=== PATIENT | female | born 1960 | race African-American/Black ===

== ENCOUNTER 2019-02-13 05:57 | Inpatient (IN) | payer OTHER ==
[2019-02-03 13:02] VITALS: BMI 30.1
[~2019-02-13 05:57] MED LIST: oxyCODONE HCL 10 MG SUSTAINED ACTING TABLET PO ONE
[2019-02-13] MEDS ORDERED: DEXAMETHASONE SOD PHOSPHATE/PF 10 MG/ML SDV ONE (07:08)
[2019-02-13] MEDS ORDERED: BUPIVACAINE LIPOSOME/PF (EXPAREL) 266 MG/20 ML VIAL ONE (07:08)
[2019-02-13] MEDS ORDERED: MIDAZOLAM HCL 2 MG/2 ML SINGLE DOSE VIAL ONE ×2 (07:09→08:35)
[2019-02-13] MEDS ORDERED: SODIUM CHLORIDE 0.9% P/F 10 ML VIAL IJ ONE (07:21)
[2019-02-13] MEDS ORDERED: ONDANSETRON 4 MG/2 ML VIAL ONE ×2 (07:21→07:26)
[2019-02-13] MEDS ORDERED: ceFAZolin SODIUM 1 GM VIAL ONE (07:21)
[2019-02-13] MEDS ORDERED: BUPIVACAINE HCL/PF 0.5% (5MG/ML) 10 ML VIAL ONE (07:26)
[2019-02-13] MEDS ORDERED: DEXMEDETOMIDINE HCL 200 MCG/2 ML IVPB ONE (07:54)
[2019-02-13] MEDS ORDERED: GUM MASTIC/STORAX/MSAL/ALCOHOL 1 DRP DROPSBTL MC ONE (08:06)
--- NOTE | 2019-02-13 08:26 | HP ---
History & Physical Update - History History: No Change - Physical Physical: No Change - Assessment Assessment: No Change - Plan Plan: No Change
[2019-02-13] MEDS ORDERED: ONDANSETRON 4 MG/2 ML VIAL IVPUSH PRN ×2 (10:14→11:08)
[2019-02-13] MEDS ORDERED: LACTATED RINGERS SOLUTION 1,000 ML IV SCH ×2 (10:15→11:15)
[2019-02-13] MEDS ORDERED: KETOROLAC TROMETHAMINE 15 MG/ML VIAL IVPUSH PRN (11:08)
[2019-02-13] MEDS ORDERED: ACETAMINOPHEN 1000 MG/100 ML VIAL (NON FORMULARY) IVPB PRN (11:08)
[2019-02-13] MEDS ORDERED: oxyCODONE HCL 5 MG TABLET PO PRN (11:08)
[2019-02-13] MEDS: ACETAMINOPHEN 1000 MG/100 ML VIAL (NON FORMULARY) IVPB ONE ×2 (11:09→11:15)
--- NOTE | 2019-02-13 11:17 | OP ---
Operative Note - Note: Operative Date: 02/13/19 Pre-Operative Diagnosis: L4-5 spondylolithiasis Operation: posterior lumbar decompression, fuson, instrumentation. transforaminal interbody lumbar fusion of L4-5 with allograft and neuromonitoring Surgeon: Mike Reynolds President + Publisher: Moira Peterson Anesthesiologist/AUTOMOTIVE TIRE TESTING SUPERVISOR: Sarahi Phoenix Anesthesia: Spinal Estimated Blood Loss (mls): 20 Fluid Volume Replaced (mls): 1,000 Operative Report Dictated: Yes
[2019-02-13] MEDS ORDERED: diazePAM 2 MG TABLET ONE (11:49)
[2019-02-13] MEDS: diazePAM 2 MG TABLET PO SCH (11:52)
--- NOTE | 2019-02-13 12:47 | OP ---
DATE OF OPERATION: 02/13/2019 PREOPERATIVE DIAGNOSIS: Spondylolisthesis at L4-5. POSTOPERATIVE DIAGNOSIS: Spondylolisthesis at L4-5. PROCEDURE PERFORMED: 1. L4-5 transforaminal lumbar interbody fusion. 2. Placement of instrumentation at L4-5. 3. Placement of prosthetic cage. SURGEON: Mike Reynolds MD [facility] RO[facility] ATTENDANT: ARANZA Amaya ESTIMATED BLOOD LOSS: 50 mL. INTRAVENOUS FLUIDS: Per Anesthesia. ANESTHESIA: Spinal/TLIP. COMPLICATIONS: None. DISPOSITION: Patient was brought to the PACU in stable condition. INDICATION FOR SURGERY: Patient is a 58-year-old female who has been suffering from pain from her back down her leg. X-rays and MRI were completed which noted that she had spondylolisthesis at L4-5, contributing to spinal stenosis at that level. She had gone through an exhaustive course of treatment for this, to include medications, physical therapy as well as injections. Unfortunately, her pain continued to persist despite all this. At this point, risks, benefits, and alternatives were discussed, and the patient consented to surgery. DESCRIPTION OF PROCEDURE: Patient was brought to the operating room by the anesthesia staff. After appropriate patient identification was performed, spinal anesthesia was given. TLIP block was also given. Patient was able to position herself prone onto the OR table with all areas of bony prominences well padded at this time. Two needles were placed in to ino off the L4-5 segment. X-ray was taken to confirm this as correct. Birch Tree were removed, and the L4 and L5 pedicles were marked off. Her back was prepped and draped in a sterile manner. At this point, timeout was completed. An incision was made from the top of L4 down to the bottom of L5. Dissection was carried down to the pedicles bilaterally. At this point, the C-arm was brought in. Under C-arm guidance, trocars were advanced into both the L4 and L5 pedicles. Through the trocar, a wire was inserted. Over the wire, tap was performed. Screws were inserted. On the right-hand side, retractor blades were set up to expose the L4-5 facet joint. The facet joint was removed. The disk was entered using a series of pituitaries, Kerrisons, and curettes. A diskectomy was completed. The endplates were decorticated at this time. A cage filled with bone graft was placed in. Manuelip heads were placed over the screws. A genaro was measured and placed in. Caps and compression were applied. On the left-hand side, a genaro was measured and placed in. Caps and compression were applied. AP and lateral x-rays confirmed the instrumentation to be in good position. The fascia was closed with a number 1 Vicryl suture. Subcutaneous tissues were closed with 2-0 Vicryl suture. The skin was closed with 4-0 Monocryl suture. Dermabond was applied. Steri-Strips were applied. A sterile dressing was applied. Patient was placed supine on the OR bed, brought to the PACU in stable condition. Mekhi [id number]
[2019-02-13] MEDS: oxyCODONE HCL 5 MG TABLET PO PRN ×2 (13:59→20:18)
--- NOTE | 2019-02-13 15:43 | SURG ---
Surgery Generator Rebuilder Note Generator Rebuilder: Moira Peterson PA-C Date of Service: 02/13/19 Diagnosis: L4-5 spondylolithiasis Procedure: posterior lumbar decompression, fuson, instrumentation. transforaminal interbody lumbar fusion of L4-5 with allograft and neuromonitoring I was present for the entirety of the operative procedure. For further detail, please refer to operative report. Visit type - Case Type Case Type: Scheduled - New patient This patient is new to me today: Yes Date on this admission: 02/13/19
[2019-02-13] MEDS: CEFAZOLIN 1 GM/D5W 1 GM/50 ML BAG IVPB SCH (16:45)
[2019-02-13] MEDS ORDERED: ACETAMINOPHEN 325 MG TABLET (FP) PO SCH (18:00)
[2019-02-13] MEDS ORDERED: ACETAMINOPHEN 500 MG TABLET (FP) PO SCH (18:08)
[2019-02-13] MEDS: ACETAMINOPHEN 500 MG TABLET (FP) PO SCH (18:16)
[2019-02-13] MEDS ORDERED: KETOROLAC TROMETHAMINE 30 MG/1 ML VIAL ONE (20:14)
[2019-02-14] MEDS ORDERED: diazePAM 2 MG TABLET ONE
[2019-02-14] MEDS: diazePAM 2 MG TABLET PO SCH (00:09)
[2019-02-14] MEDS: ACETAMINOPHEN 500 MG TABLET (FP) PO SCH ×2 (00:09→06:30)
[2019-02-14] MEDS: CEFAZOLIN 1 GM/D5W 1 GM/50 ML BAG IVPB SCH ×2 (01:25→09:20)
[2019-02-14 06:54] VITALS: BP 110/64; PULSE 69; TEMP 98.1
[2019-02-14 07:57] LABS: HEMOGLOBIN 12.1 GM/dl (10.7-15.3); MCH 32.2 pg (25.7-33.7); MCHC 34.5 g/dl (32.0-36.0); MEAN CELL VOLUME 93.4 fl (80-96); MEAN PLT VOLUME 8.8 fl (7.5-11.1); PLATELET COUNT 222 K/MM3 (134-434); RBC 3.75 M/mm3 (3.60-5.2); RDW 12.2 % (11.6-15.6); WHITE BLOOD COUNT 14.1 K/mm3 (4.0-10.8)
[2019-02-14 08:23] LABS: CALCIUM 9.1 mg/dl (8.5-10); CREATININE 0.6 mg/dl (0.55-1.3); POTASSIUM 3.7 mmol/L (3.5-5.1)
--- NOTE | 2019-02-14 09:44 | DS ---
Physical Exam: SUBJECTIVE: Patient seen and examined this am. She states that she is having some incisional pain but overall feels good. OOB and ambulating, voiding without difficulty. No CP or SOB, no nausea. OBJECTIVE: Vital Signs Temperature 98.1 F 02/14/19 06:00 Pulse Rate 69 02/14/19 06:00 Respiratory Rate 18 02/14/19 06:00 Blood Pressure 110/64 02/14/19 06:00 O2 Sat by Pulse Oximetry (%) 100 02/14/19 06:00 PHYSICAL EXAM GENERAL: The patient is awake, alert, and fully oriented, in no acute distress. LUNGS: Breath sounds equal, clear to auscultation bilaterally. HEART: Regular rate and rhythm. ABDOMEN: Soft, nontender, nondistended.. EXTREMITIES: no edema or swelling noted b/l. 5/5 dorsi/plantar flexion. NEUROLOGICAL: 5/5 dorsi/plantar flexion b/l PSYCH: Normal mood, normal affect. LABS CBC,CMP WBC 14.1 K/mm3 (4.0-10.8) H 02/14/19 07:33 RBC 3.75 M/mm3 (3.60-5.2) 02/14/19 07:33 Hgb 12.1 GM/dl (10.7-15.3) 02/14/19 07:33 Hct 35.0 % (32.4-45.2) 02/14/19 07:33 MCV 93.4 fl (80-96) 02/14/19 07:33 MCH 32.2 pg (25.7-33.7) 02/14/19 07:33 MCHC 34.5 g/dl (32.0-36.0) 02/14/19 07:33 RDW 12.2 % (11.6-15.6) 02/14/19 07:33 Plt Count 222 K/MM3 (134-434) 02/14/19 07:33 MPV 8.8 fl (7.5-11.1) 02/14/19 07:33 Sodium 139 mmol/L (136-145) 02/14/19 07:33 Potassium 3.7 mmol/L (3.5-5.1) 02/14/19 07:33 Chloride 107 mmol/L (98-107) 02/14/19 07:33 Carbon Dioxide 28 mmol/L (21-32) 02/14/19 07:33 Anion Gap 4 MMOL/L (8-16) L 02/14/19 07:33 BUN 10.0 mg/dl (7-18) 02/14/19 07:33 Creatinine 0.6 mg/dl (0.55-1.3) 02/14/19 07:33 Est GFR (CKD-EPI)AfAm 115.63 02/14/19 07:33 Est GFR (CKD-EPI)NonAf 99.77 02/14/19 07:33 Random Glucose 92 mg/dl (74-106) 02/14/19 07:33 Calcium 9.1 mg/dl (8.5-10) 02/14/19 07:33 HOSPITAL COURSE: The patient was admitted to the Med-Surg Unit after an elective repair of their spondylolithesis Now, s/p L4-5 TLIF. The day of surgery, the patient ambulated the hallways with assistance. Narcotic and non-narcotic pain management control was achieved with an oral and IV approach. An xray was obtained and confirmed hardware placement at L4-5, no fractures or dislocations. Rosa Isela-operative IV ABX were administered. DVT prophylaxis was achieved with SCDs and early ambulation. The patient ambulated with Physical Therapy and no services were recommended upon discharge. Narcotic scripts and or muscle relaxants were checked with [place] [facility] prior to escibe. The discharge instructions and an oral pain management plan were reviewed with the patient. All questions answered. Above plan discussed with Dr. Reynolds and agreed. Date of Admission:02/13/19 Date of Discharge: 02/14/19 Minutes to complete discharge: 30 Visit type - Case Type Case Type: Scheduled - Emergency Emergency Visit: No - New patient This patient is new to me today: Yes Date on this admission: 02/14/19
== END 2019-02-14 12:05 | disposition home or self-care (01) | DRG 304 ==
LOC: FM/S 05:57
PROVIDERS: ADMIT Orthopaedic Surgery Orthopaedic Surgery of the Spine; ATTEND Orthopaedic Surgery Orthopaedic Surgery of the Spine
PROC: 0SB20ZZ Excision of Lumbar Vertebral Disc, Open Approach (ICD-10-PCS; 2019-02-13)
PROC: 00NY0ZZ Release Lumbar Spinal Cord, Open Approach (ICD-10-PCS; 2019-02-13)
PROC: 4A10X4G Monitoring of Central Nervous Electrical Activity, Intraoperative, External Approach (ICD-10-PCS; 2019-02-13)
PROC: 0SG00AJ Fusion of Lumbar Vertebral Joint with Interbody Fusion Device, Posterior Approach, Anterior Column, Open Approach (ICD-10-PCS; principal; 2019-02-13 09:20)
DX: M43.16 Spondylolisthesis, lumbar region (principal); M48.061 Spinal stenosis, lumbar region without neurogenic claudication
CPT/HCPCS: 36415; 72100-TC-FY; 80048; 85027; 94760; 97116-GP; 97162-GP; J0131